=== PATIENT | female | born 1965 | race Caucasian/White ===

== ENCOUNTER 2017-11-10 13:02 | Emergency (ER) | payer BC ==
[2017-11-10 13:15] VITALS: BP 135/85; PULSE 75; TEMP 98.9; BMI 27.4
[2017-11-10] MEDS ORDERED: IBUPROFEN 400 MG TABLET (FP) PO ONE ×2 (13:40→13:42)
[2017-11-10] MEDS ORDERED: DIPHTH,PERTUSS(ACELL),TET 0.5 ML DISP.SYRIN IM ONE (13:40)
--- NOTE | 2017-11-10 13:51 | PDOC ---
History of Present Illness - General Chief Complaint: Injury Stated Complaint: RIGHT CHIN LACERATION Time Seen by Provider: 11/10/17 13:18 - History of Present Illness Initial Comments: 11/10/17 14:37 Chief complaint: Laceration History of present illness: Patient fell against the sharp edge of a trash can at a local restaurant, sustaining a laceration to her right lower chin. No other injuries. No pain now. Review of systems: Denies pain or injury to the head neck chest abdomen spine pelvis or extremities. Denies pain with clenching of the jaw or mastication. Denies pain opening her mouth. Denies injury to the dentition. Past medical history: Reviewed and noncontributory Social/family history: Reviewed and noncontributory Physical exam: Alert and oriented well-developed well-nourished no acute distress cooperative Afebrile vital signs normal Approximately 2 cm flap type laceration extending through the dermis and into the subcutaneous tissue, right lateral chin. No bleeding. There is also an abrasion medial to the laceration. Superficial. Full range of motion of the jaw without restriction. Dentition intact. No laceration or evidence of through and through injury in the oropharynx. Impression: Facial laceration and abrasion Plan: Patient requests plastic surgery for closure. Dr. Dang contacted. He is in his office and will meet the patient back in the emergency room at 534 further evaluation and treatment. Past History - Past Medical History Allergies/Adverse Reactions: Allergies Allergy/AdvReac Type Severity Reaction Status Date / Time Penicillins Allergy Unknown Verified 11/10/17 13:09 Home Medications: Ambulatory Orders NK [No Known Home Medication] 11/10/17 COPD: No - Suicide/Smoking/Psychosocial Hx Smoking History: Never smoked Hx Alcohol Use: Yes Drug/Substance Use Hx: No Substance Use Type: None *Physical Exam - Vital Signs Last Vital Signs Temp Pulse Resp BP Pulse Ox 98.9 F 75 16 135/85 100 11/10/17 13:09 11/10/17 13:09 11/10/17 13:09 11/10/17 13:09 11/10/17 13:09 Medical Decision Making - Medical Decision Making 11/10/17 14:40 Wound care: The wound was thoroughly irrigated with normal saline and gently scrubbed. It was explored. Found to be superficial, however, it extended into the subcutaneous tissues. There was no skin loss. However, the edge of the flap appeared devitalized. No point tenderness over the mandible. No swelling or other deformity of the facial bones. Bacitracin was applied, a Telfa nonstick dressing was placed over the wound, and a large Band-Aid was loosely applied to secure the Telfa. Instructed to keep clean and dry and return for surgical repair this afternoon at a later time, as per her request. The patient is on her way to her son's problem, and requests that the repair be postponed until the problem preparations are complete. She will return to the ER for definitive repair at 5:[address] Robertson agrees to meet her here at this time. *DC/Admit/Observation/Transfer Diagnosis at time of Disposition: Laceration of chin Qualifiers: Encounter type: initial encounter Qualified Code(s): S01.81XA - Laceration without foreign body of other part of head, initial encounter - Discharge Dispostion Disposition: HOME Condition at time of disposition: Improved Decision to Admit order: No - Referrals Referrals: Sher Robertson MD [Staff Physician] - - Patient Instructions Additional Instructions: Keep covered, clean, and dry Return to emergency room 5:30 PM for repair of laceration by plastic surgeon, Dr. Zen Robertson. - Post Discharge Activity
== END 2017-11-10 13:59 | disposition home or self-care (01) ==
LOC: FER 13:02
PROC: 3E0234Z Introduction of Serum, Toxoid and Vaccine into Muscle, Percutaneous Approach (ICD-10-PCS; principal; 2017-11-10)
DX: S01.81XA Laceration without foreign body of other part of head, initial encounter (principal); W22.8XXA Striking against or struck by other objects, initial encounter; Y93.89 Activity, other specified; Y92.9 Unspecified place or not applicable
CPT/HCPCS: 90715; 99281-25

== ENCOUNTER 2017-11-10 18:29 | Emergency (ER) | payer BC ==
[2017-11-10 18:41] VITALS: BP 132/90; PULSE 82; TEMP 98.3; BMI 27.3
[2017-11-10] MEDS ORDERED: LIDO 2%/EPI 1:200000 PRESRVFRE (20 ML SDVIAL) ONE (18:52)
[2017-11-10] MEDS ORDERED: LIDOCAINE HCL 2% (50ML VIAL) INF ONE (18:58)
--- NOTE | 2017-11-10 19:00 | PDOC ---
History of Present Illness - General Chief Complaint: Laceration Stated Complaint: FACIAL LACERATION Time Seen by Provider: 11/10/17 18:52 - History of Present Illness Initial Comments: 11/10/17 18:58 Seen earlier today. Presents for repair of facial laceration by plastic surgeon Dr. Robertson. Alert, no acute distress. Repair performed in the emergency room by Dr. Robertson. He has arranged follow-up. Patient tolerated procedure well. Fully ambulatory and in no distress upon discharge with family. To follow up as directed with Dr. Robertson Past History - Past Medical History Allergies/Adverse Reactions: Allergies Allergy/AdvReac Type Severity Reaction Status Date / Time Penicillins Allergy Unknown Verified 11/10/17 18:32 Home Medications: Ambulatory Orders NK [No Known Home Medication] 11/10/17 COPD: No - Immunization History Td Vaccination: No (TODAY) TDAP Vaccination: Yes (TODAY) Immunization Up to Date: Yes - Suicide/Smoking/Psychosocial Hx Smoking History: Never smoked Information on smoking cessation initiated: No Hx Alcohol Use: No Drug/Substance Use Hx: No Substance Use Type: None *Physical Exam - Vital Signs Last Vital Signs Temp Pulse Resp BP Pulse Ox 98.3 F 82 16 132/90 99 11/10/17 18:32 11/10/17 18:32 11/10/17 18:32 11/10/17 18:32 11/10/17 18:32 *DC/Admit/Observation/Transfer Diagnosis at time of Disposition: Laceration of chin Qualifiers: Encounter type: sequela Qualified Code(s): S01.81XS - Laceration without foreign body of other part of head, sequela - Discharge Dispostion Disposition: HOME Condition at time of disposition: Improved Decision to Admit order: No - Referrals - Patient Instructions Printed Discharge Instructions: DI for Laceration Repair Additional Instructions: Wound care and follow-up as directed by Dr. Robertson. - Post Discharge Activity
--- NOTE | 2017-11-11 13:13 | OP ---
DATE OF OPERATION: 11/10/2017 TITLE OF PROCEDURE: Debridement and excision wound in preparation for adjacent tissue transfer reconstruction of chin wound and subsequent V-Y reconstruction of chin wound. ATTENDING SURGEON: Sher Robertson MD REFERRING PHYSICIAN: Patient was seen at the request of referring physician, Dr. Josh Ferrara. HISTORY: This is a 52-year-old female who suffered a fall earlier in the day, brought into the [facility] [place] [facility] for evaluation and treatment. PAST MEDICAL AND SURGICAL HISTORY: Noncontributory. REVIEW OF SYSTEMS: Negative for any bleeding, coagulopathy, recent fevers or infections, changes in mental status, chest pain, or shortness of breath. PHYSICAL EXAMINATION: Head and neck: Traumatic for a U-shaped flap injury with surrounding skin necrosis and mutilation and abrasion to the right jawline. The remainder of head and neck exam is otherwise atraumatic. Dentition is normal. There is normal facial nerve function. No evidence of a jaw fracture. The neck is supple, nontender. Heart: Regular rate and rhythm. Lungs: Clear to auscultation. Abdomen: Soft, nontender. Extremities: Warm and well perfused. Patient was counseled on the need for debridement of the wound in its entirety in preparation for closure, copious irrigation, curetting, and flap orientation with a V-Y closure on the chin. Patient understands and agrees to proceed. The procedure was as follows. DESCRIPTION OF PROCEDURE: The area is given 5 mL of 2% lidocaine with 1:100,000 epinephrine area field block, after which the margins of the wound were entirely excised including grossly devitalized skin as well as underlying partially contaminated fat. The wound was copiously irrigated with Betadine dilute with normal saline followed by just straight normal saline. The primary closure was not possible. The flap was inset as a V-Y reconstruction to the area. The Y limb was closed primarily with a buried 5-0 Vicryl suture, 6-0 nylon suture. The V portion of the flap was then inset with a series of interrupted 5-0 Vicryl suture followed by a 6-0 nylon suture. All elements of the tissue appeared to be viable. The areas of abrasion were dressed with Bacitracin. Telfa gauze was applied. Patient was instructed on wound care and is to follow up with Dr. Robertson in 5-7 days for wound check and suture removal. Dk [id number] cc: Josh Ferrara MD
== END 2017-11-10 19:37 | disposition home or self-care (01) ==
LOC: FER 18:29
PROC: 0JQ10ZZ Repair Face Subcutaneous Tissue and Fascia, Open Approach (ICD-10-PCS; principal; 2017-11-10)
DX: S01.81XS Laceration without foreign body of other part of head, sequela (principal); W45.8XXS Other foreign body or object entering through skin, sequela; Y93.9 Activity, unspecified
CPT/HCPCS: 99282-25